=== PATIENT | female | born 1935 | race Caucasian/White ===

== ENCOUNTER → 2016-09-15 | Outpatient (CLI) | payer MEDICARE, BC ==
[~2016-09-15] MED LIST: BABY ASA AD; LOVA40TA70 PO; OLME40TA9 PO
--- NOTE | 2016-09-16 23:04 | ECHOF ---
DATE OF PROCEDURE: 09/15/2016 ECHOCARDIOGRAM 2-D, M-mode, color-flow and Doppler echocardiographic examinations are performed on this patient. The left atrium is normal in size. The left ventricle is normal in size. The left ventricle including the septum moves appropriately during systole and diastole. Overall ejection fraction is 70%. The mitral valve opens appropriately and does not evidence stenosis or prolapse. There is minimal mitral annular calcification. There is mild mitral regurgitation. The aortic, tricuspid and pulmonic valves appear normal. There is mild AI and mild TR. Pulmonary valve is not well visualized. Pulmonary artery pressures are elevated at 38 mmHg. This is mild elevation. The right atrium and right ventricle, including inflow and outflow tracts, appear normal. Right ventricular function is normal. Aortic root is normal. IVC collapses well. No vegetations are seen on any valve. No intracavitary masses or thrombi are noted. There is no pericardial effusion. CONCLUSION Normal ejection fraction at 70%. Mild MR, TR, AI. Minimal mitral annular calcification. Mild elevation of pulmonary artery pressures to 38 mmHg. MTDD
== END ==
LOC: IMA 07:29
PROVIDERS: ATTEND Internal Medicine Cardiovascular Disease
DX: I08.3 Combined rheumatic disorders of mitral, aortic and tricuspid valves (principal); I27.89 Other specified pulmonary heart diseases; I10 Essential (primary) hypertension
CPT/HCPCS: 93306